=== PATIENT | female | born 1995 | race African-American/Black ===

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

== ENCOUNTER 2017-03-11 03:21 | Outpatient (CLI) | payer OTHER ==
[~2017-03-11] VITALS: Ht 170.2 cm; Wt 80.3 kg
[2017-03-11 03:38] VITALS: BP 118/75
--- NOTE | 2017-03-11 06:47 | IPNPDOC ---
Text Note Date of Service The patient was seen on 03/11/17. NOTE Romy is a 22yo with SIUP at 40wk presenting for ctx. She states ctx started yesterday, occurred off and on. Started again in the middle of the night and she could not sleep, so she came in. No LOF, some slight spotting, feels good movement. Vitals wnl General: WDWN, resting comfortably in bed Abdomen: soft, NTTP, gravid SCE (RN as core man): 380/-2, on re-check 2 hours later unchanged FHRT: Cat I with bl 120, +accels, -decels, mod federico over 2 hours [place]: ctx q6-8 minutes Assessment: Romy is a 22yo with SIUP at 40wk withOUT evidence of active labor given no cervical exchange floor manager 2 hours, 380/-2. Ctx still 6-8 min apart. Reassuring status. Vitals wnl. GBS positive. Plan: -Discuss return precautions in detail: return when ctx stronger and 3-5 min apart for 1 hour -Ok to take a dose of benadryl, get in the shower/bath to address discomfort -If no labor prior, keep next OB appt -Safe for discharge Dr. Gurdeep Real MD VS,Anaid, I+O VSAnaid, I+O Vital Signs Date Time Temp Pulse Resp B/P (MAP) Pulse Ox O2 Delivery O2 Flow Rate FiO2 03/11/17 03:38 97.6 86 18 118/75 (89) GURDEEP ESPINOZA MD Mar 11, 2017 06:47
[2017-03-11] MEDS ORDERED: PRENTAB16 PO (13:35)
== END 2017-03-11 06:52 | disposition home or self-care (01) ==
LOC: M LDO 03:21
PROVIDERS: ATTEND Obstetrics & Gynecology
DX: O47.1 False labor at or after 37 completed weeks of gestation (principal); Z3A.40 40 weeks gestation of pregnancy

== ENCOUNTER 2017-03-11 13:08 | Inpatient (IN) | payer OTHER ==
[2017-03-11] VITALS (38 sets, daily range): BP systolic 88–145; BP diastolic 52–91
[~2017-03-11] VITALS: Ht 170.2 cm; Wt 79.0 kg
[2017-03-11] MEDS ORDERED: PRENTAB16 PO (13:35)
[2017-03-11] MEDS ORDERED: LACTATED RINGER'S 1000 ML IV STA (13:57)
[2017-03-11] MEDS ORDERED: LR 1,000 ML IV SCH (13:57)
--- NOTE | 2017-03-11 14:10 | HPEPDOC ---
Obstetrical History & Physical General Date of Admission Mar 11, 2017 at 13:44 History of Present Illness 21 y/o at at 40+0 for reg painful ctx's. No VB or LOF. Pos FM. Prob list: Signif N/V on prn zofran GBS pos Abnl HC:AC on initial grth and nl scan at [facility] Chief Complaint: Contractions, term Information Provided By: Patient Care Care: Good Care Dating Final EDC by: LMP, 1st trimester (US) Past Medical History Past Obstetrical History : Past Obstetrical History: Primgravida Past Medical History Medical History depression Surgical History: Other (removal of extra fingers at ) Family History Significant Family History: No pertinent family hx Social History Social history denies Marital Status: Family situation: Spouse/partner home Psychosocial History: No pertinent psych hx * Smoker: non-smoker Alcohol: Denies Abuse Violence Screening Have you been hit/kicked/slapp: No Have you been sexually assault: No Imunizations Tdap status: current Influenza Status: declined Allergies Coded Allergies: No Known Allergies (Unverified , 10/10/16) Medications Scheduled PRN Ondansetron (Zofran Odt) 4 Mg Tab, 4 MG PO Q4H PRN for NAUSEA Miscellaneous Medications Multivitamins/ ( Complete 14-0.4 mg) 1 Tab Tab, 1 TAB PO Physical Examination Physical Examination GENERAL: Alert and oriented times three. BREAST: . ABDOMEN: Gravid and non-tender to touch. FETUS: Is vertex (VTX) by sterile vaginal examination, 5/75/-2/vtx well applied EXTREMITIES: No edema. No clonus. Laboratory Data 24H LABS Laboratory Tests 2 03/11/17 13:48: Serology Scanned Report Hepatitis B Testing Urine Culture: Contaminated Pertinent Laboratoy Data Blood Type: B+ RBC Antibody Screen: Negative HIV: Negative Hepatitis B: Negative Hepatitis C: Unknown Rapid Plasma Reagin: Nonreactive Rubella: Immune Varicella: Immune Chlamydia/Gonorrhea: Negative Group B Streptococcus: Positive Quad Screen Test: Declined Cystic Fibrosis: Declined Glucose Tolerance Test: 96 Anatomy Ultrasound Ultrasound Date: Nov 18, 2016 Placenta Location: Anterior Normal Anatomy: Yes (other than persistent elevated HC:AC, rpt scans were persistent at [facility], MFM scan showed nl ratio with no further scans recommended on 7SEP) Placenta Previa: No Assessment Variability: Moderate Accelerations: Positive Decelerations: None Tocometer Contractions: Yes Frequency: regular Assessment/Plan Assessment Active labor. GBS pos (PCN ordered) Plan Admit and orient. Delicatessen Slicer and consent. Diet: clrs Labs and intravenous (IV) per unit protocol. Counseled on Pitocin and induction of labor (IOL). Lactated Ringers (LR): Bolus 1000 mL prior to epidural, then at 125 mL/hr. Anticipate normal spontaneous delivery () C-S as appropriate. Sessions SESSIONS,SAJAN Guzmán MD Mar 11, 2017 14:10
[2017-03-11] MEDS ORDERED: PENICILLIN G POTASSIUM IV 5 MU in D5W MINI-BAG PLUS 100 ML IV STA (15:08)
[2017-03-11 15:53] LABS: MEAN CORPUSCULAR HEMOGLOBIN 29.8 pg (27.0-33.0); MEAN CORPUSCULAR HGB CONC 34.9 g/dl (32.0-36.5); MEAN CORPUSCULAR VOLUME 85.5 fl (80.0-96.0); PLATELET COUNT, AUTOMATED 270 10^3/uL (150-450); RED CELL DISTRIBUTION WIDTH 13.1 % (11.5-14.5); WHITE BLOOD COUNT 17.9 10^3/uL (4.0-10.0)
[2017-03-11] MEDS ORDERED: FENTANYL 2MCG/ML ROPIVACAINE 0.2% IN 0.9% NACL 200ML IVBAG As Ordered ONE (16:08)
[2017-03-11] MEDS ORDERED: ePHEDrine SULFATE 25 MG/5 ML(5MG/ML) SYRINGE IV PRN (17:00)
[2017-03-11] MEDS ORDERED: LACTATED RINGER'S 1000 ML IV PRN (17:00)
[2017-03-11] MEDS ORDERED: diphenhydrAMINE INJ 50MG/ML VIAL (J1200) IV PRN (17:00)
[2017-03-11] MEDS ORDERED: REFRIGERATOR IV KEYS XX PRN (17:00)
[2017-03-11] MEDS ORDERED: EPIDURAL/PCA KEYS XX PRN (17:00)
[2017-03-11] MEDS ORDERED: ONDANSETRON 4MG/2ML VIAL (J2405) IV PRN (17:00)
[2017-03-11] MEDS ORDERED: EPIDURAL COMMENT XX SCH (17:00)
[2017-03-11] MEDS ORDERED: FENTANYL/ROPIVACAINE/NACL BAG 200 ML EPIDURAL SCH (17:00)
[2017-03-11] MEDS ORDERED: NALOXONE INJ 0.4 MG/1 ML VIAL (J2310) IV PRN (17:00)
[2017-03-11] MEDS ORDERED: PENICILLIN G POTASSIUM IV 2.5 MU in D5W 100 ML IV SCH (19:30)
[2017-03-11] MEDS ORDERED: OXYTOCIN 30 UNITS IN 0.9% NaCl 500ML IV BAG (J2590) As Ordered ONE (20:56)
--- NOTE | 2017-03-11 20:59 | IPNPDOC ---
Text Note Date of Service The patient was seen on 03/11/17. NOTE Now with 2 doses PCN NST Cat 1 SROM 3 hrs ago with mec Cx C/C/+2/vtx well applied/KAREN start pushing VS,Fishbone, I+O VS, Fishbone, I+O Laboratory Tests 03/11/17 15:20 Red Blood Count 3.99 L, Mean Corpuscular Volume 85.5, Mean Corpuscular Hemoglobin 29.8, Mean Corpuscular Hemoglobin Concent 34.9, Red Cell Distribution Width 13.1 Vital Signs Date Time Temp Pulse Resp B/P (MAP) Pulse Ox O2 Delivery O2 Flow Rate FiO2 03/11/17 19:38 98.9 03/11/17 19:36 85 18 98/56 (70) I&O- Last 24 Hours up to 6 AM 03/12/17 06:00 Intake Total 1000 ml Output Total 725 ml Balance 275 ml SESSIONS,SAJAN Guzmán MD Mar 11, 2017 20:59
[2017-03-11] MEDS ORDERED: OXYTOCIN DRIP 30 UNITS in APPROPRIATE DILUENT 1 EA IV SCH (22:19)
--- NOTE | 2017-03-11 22:27 | DNPDOC ---
[facility] Delivery Note Delivery Note DATE OF DELIVERY: [id number] @2139 PREDELIVERY DIAGNOSIS: 40 0/7 weeks' gestation and labor. POST DELIVERY DIAGNOSIS: Delivered. PROCEDURE: Spontaneous vaginal delivery BACK END ARCHITECT: Dr. Almeida ANESTHESIA: epidural ESTIMATED BLOOD LOSS: 300 mL. FINDINGS: 6 pound 7 ounce female infant, Score 8/9 DELIVERY SUMMARY: Pushed very well. No delay of the vtx or the ant/post shoulders, compound post right arm. To abd with good cry and tone. Cord C/C by FOB. Cord blood. Placenta intact with slight traction and massage. Several lacs inside the introitus reapproximated with 3-0 vicryl. Small lac just ant to urethra bleeding and closed with 4-0 vicryl after a red gerardo cath placed into the urethra to ensure nl anatomy/closure. Good hemostasis/cosmesis noted. Shane ALMEIDA,SAJAN Guzmán MD Mar 11, 2017 22:27
[2017-03-11] MEDS ORDERED: ACETAMINOPHEN TAB 650MG DOSE (2X325MG) PO PRN (22:30)
[2017-03-11] MEDS ORDERED: METOCLOPRAMIDE INJ 10MG/2ML VIAL (J2765) IV PRN (22:30)
[2017-03-11] MEDS ORDERED: DIBUCAINE 1% OINTMENT 30GM TOP PRN (22:30)
[2017-03-11] MEDS ORDERED: IBUPROFEN 800 MG TAB PO PRN (22:30)
[2017-03-11] MEDS ORDERED: MEASLES,MUMPS,RUBELLA VACCINE INJ (MMR-II) (90707) SC SCH (22:30)
[2017-03-11] MEDS ORDERED: RHOGAM 300 MCG (1500 IU) INJ (J2790) IM SCH (22:30)
[2017-03-12 00:13] VITALS: BP 127/72
[2017-03-12 06:03] VITALS: BP 101/68
--- NOTE | 2017-03-12 06:38 | IPNPDOC ---
Text Note Date of Service The patient was seen on 03/12/17. NOTE PPD1 prog note States feeling well, no complaints. No heavy VB. Pain controlled. Voiding, ambulatory. Bonding well and feeding well. VSSAF CTAB RRR Ut at U-2, firm Ext no CCE a/p: Doing well. routine pp care. Sessions Anaid LOMAX, I+O VSAnaid, I+O Laboratory Tests 03/11/17 15:20 Red Blood Count 3.99 L, Mean Corpuscular Volume 85.5, Mean Corpuscular Hemoglobin 29.8, Mean Corpuscular Hemoglobin Concent 34.9, Red Cell Distribution Width 13.1 Vital Signs Date Time Temp Pulse Resp B/P (MAP) Pulse Ox O2 Delivery O2 Flow Rate FiO2 03/12/17 06:03 99.3 82 16 101/68 (79) SESSIONS,SAJAN Guzmán MD Mar 12, 2017 06:38
[2017-03-12] MEDS: PRENATAL VITAMINS CHEWABLE TABLET PO SCH (08:41)
[2017-03-12] MEDS: DOCUSATE SODIUM 100 MG CAP PO SCH ×2 (08:58→21:00)
[2017-03-12 18:00] VITALS: BP 125/59
[2017-03-13 05:42] VITALS: BP 130/75
--- NOTE | 2017-03-13 07:44 | IPNPDOC ---
Text Note Date of Service The patient was seen on 03/13/17. NOTE PPD1 prog note States feeling well, no complaints. No heavy VB. Pain controlled. Voiding, ambulatory. Bonding well and feeding well. VSSAF CTAB RRR Ut at U-2, firm Ext no CCE a/p: Doing well. routine pp care. Likely d/c tomorrow. Sessions VS,Anaid, I+O VSAnaid, I+O Vital Signs Date Time Temp Pulse Resp B/P (MAP) Pulse Ox O2 Delivery O2 Flow Rate FiO2 03/13/17 05:42 97.6 76 16 130/75 (93) 03/12/17 18:00 Room Air SESSIONS,SAJAN Guzmán MD Mar 13, 2017 07:44
[2017-03-13] MEDS: DOCUSATE SODIUM 100 MG CAP PO SCH ×2 (09:00→21:00)
[2017-03-13] MEDS ORDERED: INFLUENZA QUADRIVALENT PF VACCINE 0.5ML SYRINGE (90686) IM ONE (09:00)
[2017-03-13] MEDS: PRENATAL VITAMINS CHEWABLE TABLET PO SCH (15:55)
[2017-03-13 18:00] VITALS: BP 119/61
[2017-03-14 06:00] VITALS: BP 130/76
[2017-03-14] MEDS: DOCUSATE SODIUM 100 MG CAP PO SCH (08:15)
[2017-03-14] MEDS: PRENATAL VITAMINS CHEWABLE TABLET PO SCH (08:15)
[2017-03-14] MEDS ORDERED: INFLUENZA QUADRIVALENT PF VACCINE 0.5ML SYRINGE (90686) IM ONE (09:00)
[2017-03-14] MEDS ORDERED: COLA100C5 PO (10:23)
[2017-03-14] MEDS ORDERED: PRENTAB9 PO (10:24)
[2017-03-14] MEDS ORDERED: ACET50TA PO (10:26)
[2017-03-14] MEDS ORDERED: ADVI200C5 PO (10:28)
[2017-03-14] MEDS ORDERED: DIBU1OIN TOP (10:30)
== END 2017-03-14 11:50 | disposition home or self-care (01) | DRG 775 ==
LOC: M LDO 13:08 → M LDI 13:44 → M OBS 23:55
PROVIDERS: ADMIT Obstetrics & Gynecology; ATTEND Obstetrics & Gynecology
PROC: 10E0XZZ Delivery of Products of Conception, External Approach (ICD-10-PCS; principal; 2017-03-11)
PROC: 0HQ9XZZ Repair Perineum Skin, External Approach (ICD-10-PCS; 2017-03-11)
DX: O48.0 Post-term pregnancy (principal); Z37.0 Single live birth; Z3A.40 40 weeks gestation of pregnancy; O99.820 Streptococcus B carrier state complicating pregnancy; O32.6XX0 Maternal care for compound presentation, not applicable or unspecified; O70.0 First degree perineal laceration during delivery